=== PATIENT | male | born 1950 | race Caucasian/White ===

== ENCOUNTER 2025-04-22 07:18 | Day surgery (SDC) | payer MEDICARE ==
[2025-04-21 11:55] VITALS: BMI 20.5
[2025-04-22 08:50] LABS: Hematocrit 36.3 % (38.8-50.0); Hemoglobin 12.6 g/dL (13.5-17.5)
[2025-04-22 09:08] LABS: Anion Gap 10 mmol/L (10-20); BUN (Urea Nitrogen) 20 mg/dL (8.4-25.7); Calc. Creatinine Clearance 31 mL/min (70-130); Carbon Dioxide 27 mmol/L (23-31); Chloride 109 mmol/L (98-107); Glucose 103 mg/dL (83-110); Potassium 3.1 mmol/L (3.5-5.1); Sodium 143 mmol/L (136-145)
[2025-04-22 09:23] LABS: Calcium 16.9 mg/dL (7.8-10.44)
[2025-04-22] MEDS ORDERED: Ondansetron PF 4 MG/2 ML Vial ONE (10:27)
[2025-04-22] MEDS ORDERED: Rocuronium Bromide 10 MG/ML (10ML VIAL) ONE (10:27)
[2025-04-22] MEDS ORDERED: PROPOFOL 0 ML ONE (10:27)
[2025-04-22] MEDS ORDERED: CEFAZOLIN 1 GM VIAL ONE (11:12)
[2025-04-22] MEDS ORDERED: Albuterol HFA (OR) 200 PUFF INH ONE (11:32)
[2025-04-22] MEDS ORDERED: PROPOFOL 20 ML ONE (11:34)
== END 2025-04-22 13:45 | disposition home or self-care (01) ==
LOC: CSHSDC 07:18
PROVIDERS: ATTEND Otolaryngology Plastic Surgery within the Head & Neck
PROC: 0GBM0ZZ Excision of Left Superior Parathyroid Gland, Open Approach (ICD-10-PCS; principal; 2025-04-22)
DX: E21.0 Primary hyperparathyroidism (principal); E78.00 Pure hypercholesterolemia, unspecified; Z98.41 Cataract extraction status, right eye; Z98.42 Cataract extraction status, left eye; Z79.899 Other long term (current) drug therapy
CPT/HCPCS: 60500; 80048; 83970; 85014; 85018; A6258; J0690; J1100; J2405; J2704; J3010; 88305; 88331